=== PATIENT | male | born 1945 | race Caucasian/White ===

== ENCOUNTER → 2018-12-04 | Outpatient (CLI) | payer MEDICARE ==
--- NOTE | 2018-12-05 10:28 | US ---
EXAM DESCRIPTION: Carotid Duplex CLINICAL HISTORY: BRUIT COMPARISON: None Available. TECHNIQUE: Carotid Doppler ultrasound FINDINGS: Right Submitted images show calcified plaque at the right carotid bifurcation. The following flow velocities were obtained: Common carotid artery peak systolic flow velocity measures 94 centimeters per second. Internal carotid artery peak systolic flow velocity measures 63 - 86 centimeters per second. External carotid artery peak systolic flow velocity measures 90 centimeters per second. Flow in the right vertebral artery is antegrade. The right internal carotid to common carotid peak systolic flow velocity ratio equals 0.9 which is normal. Left Submitted images show mild calcified plaque at the left carotid bulb and proximal ICA. The following flow velocities were obtained: Common carotid artery peak systolic flow velocity measures 97 centimeters per second. Internal carotid artery peak systolic flow velocity measures 57-61 centimeters per second. External carotid artery peak systolic flow velocity measures 60 centimeters per second. Flow in the left vertebral artery is antegrade. The left internal carotid to common carotid peak systolic flow velocity ratio of 0.6 is normal. IMPRESSION: No hemodynamically significant stenosis. Electronically signed by: Efra Corona MD 12/05/2018 10:25 AM CDT
== END ==
LOC: US 16:55
PROVIDERS: ATTEND Psychiatry & Neurology Neurology
DX: R09.89 Other specified symptoms and signs involving the circulatory and respiratory systems (principal)

== ENCOUNTER 2019-08-26 17:07 | Emergency (ER) | payer MEDICARE ==
[2019-08-26] MEDS ORDERED: SODIUM CHLORIDE 0.9% 1000ML 1,000 ML IVS ONE (17:21)
[2019-08-26] MEDS ORDERED: ONDANSETRON INJ 4 MG/2 ML VIAL IV ONE (17:21)
--- NOTE | 2019-08-26 17:25 | ED.PDOC ---
History of Present Illness - General Chief Complaint: GI Problem Stated Complaint: Constipation, Dizziness Time Seen by Provider: 08/26/19 17:14 Source: patient, RN notes reviewed, Vital Signs reviewed, family Exam Limitations: no limitations - History of Present Illness Initial Comments: 74 yo male presents to ED for evaluation of constipation and dizziness. States he has been constipated for the past 2 years. His GI doctor recommended him to take Miralax and fiber supplement which has helped. States his last BM was 3-4 days ago, but has been passing gas. Has been nauseated with dry heaves, but denies vomiting. Reports diffuse, crampy abdominal pain. Also reports dizziness when he stands that has been off and on for the past week. He describes this as light headed. Denies room spinning, off balance or any fall or trauma. Denies BAILEY, vision changes, CP. Severity: moderate Improving Factors: medication Allergies/Adverse Reactions: Allergies NO KNOWN ALLERGY Allergy (Verified 08/26/19 17:20) Home Medications: Ambulatory Orders Amiodarone HCl 200 mg PO DAILY 08/26/19 Aspirin [Aspirin Adult Low Dose] 81 mg PO BEDTIME 08/26/19 Atorvastatin Calcium [Lipitor] 10 mg PO DAILY 08/26/19 Finasteride 5 mg PO BEDTIME 08/26/19 Lisinopril 20 mg PO DAILY 08/26/19 Warfarin Sodium 2 mg PO BEDTIME 08/26/19 Review of Systems - Review of Systems Constitutional: Denies: chills, fever, weakness EENTM: Denies: blurred vision, nose congestion, throat pain Respiratory: Denies: cough, orthopnea, short of breath Cardiology: Denies: chest pain, edema, syncope Gastrointestinal/Abdominal: States: abdominal pain, constipation, nausea. Denies: vomiting Genitourinary: Denies: dysuria, frequency, hematuria Musculoskeletal: Denies: back pain, muscle pain Skin: States: no symptoms reported Neurological: Denies: headache, paresthesia, weakness All other Systems: Reviewed and Negative Family Medical History - Family History Father Family History: No Known Living Status: Physical Exam - Physical Exam General Appearance: Alert, Comfortable, No apparent distress Eye Exam: bilateral normal - PERRL Ears, Nose, Throat: other - bilateral TM's have no erythema or effusion. Oropharynx has no erythema, edema or exudates. MMM Neck: non-tender, full range of motion, supple Respiratory: chest non-tender, lungs clear, normal breath sounds, no respiratory distress Cardiovascular/Chest: normal peripheral pulses, regular rate, rhythm, no edema, other - 5/6 systolic murmur Gastrointestinal/Abdominal: soft, other - Mild TTP diffusely. 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 strength 5/5. speech is fluent and coonversational Skin Exam: normal color, warm/dry Progress - Progress Progress: 08/26/19 17:28 Pt presents for worsening of his chronic constipation. Has mild abdominal tenderness and reports nausea with dry heaves at home. Will get CT to r/o obstruction. Also reports 1 week h/o feeling light headed when he stands. Will check labs and EKG and give IVF and observe in ED. 08/26/19 19:04 CT A/P and labs rreassuring. No heavy stool burden on CT. Abdomen is soft, no sign of acute abdomen. Will ccontinue Miralax at home and f/u with pcp in 1-2 days for recheck. SRP given. - Results/Orders Results/Orders: EXAM: Chest,1 View CLINICAL INDICATION: Shortness of COMPARISON: 07/22/2019 FINDINGS: A single view of the chest was obtained. Atherosclerotic calcifications are noted involving the aorta. The heart size is normal. The pulmonary vascularity is unremarkable. The lungs are clear except for minimal linear atelectasis adjacent to the left hilum. There is no consolidation, infiltrate, pleural effusion, or pneumothorax. IMPRESSION: No evidence of active pulmonary disease. EXAM: Abdomen/Pelvis w/Contrast CLINICAL INDICATION: Abdominal pain. COMPARISON: There is no previous study for comparison. TECHNIQUE: The CT scan was done using contiguous axial 5 mm postcontrast sections through the abdomen and pelvis including IV contrast. This exam was performed according to our departmental dose-optimization program, which includes automated exposure control, adjustment of the mA and/or kV according to patient size and/or use of iterative reconstruction technique. FINDINGS: The visualized lung bases contain foci of subsegmental atelectasis but are otherwise clear. Mild pectus excavatum is noted. The liver, gallbladder, kidneys, adrenal glands, spleen, and pancreas have a normal CT appearance. The aorta contains atherosclerotic calcifications without evidence of aneurysm. The prostate gland is enlarged measuring 4.6 x 4.9 cm. There are no dilated loops of small bowel. There is no free air, free fluid, or abscess. IMPRESSION: No evidence of an acute intra-abdominal process. 08/26/19 17:20 Hold Metformin x 48Hrs [id number] 08/26/19 17:21 URINALYSIS Stat 08/26/19 17:30 EKG .ONCE Laboratory Results - last 24 hr 08/26/19 08/26/19 08/26/19 17:35 17:35 17:35 WBC 6.9 RBC 4.02 L Hgb 12.6 L Hct 37.5 L MCV 93.2 MCH 31.3 H MCHC 33.6 RDW 14.0 Plt Count 189 MPV 10.2 Absolute Neuts (auto) 5.20 Absolute Lymphs (auto) 0.90 L Absolute Monos (auto) 0.60 Absolute Eos (auto) 0.10 Absolute Basos (auto) 0.10 Neutrophils % 75.7 Lymphocytes % 13.7 L Monocytes % 8.8 Eosinophils % 0.8 L Basophils % 1.0 Sodium 134 L Potassium 4.3 Chloride 102 Carbon Dioxide 22 Anion Gap 14.3 BUN 34 H Creatinine 1.64 H BUN/Creatinine Ratio 20.7 H Random Glucose 97 Serum Osmolality 275.8 Calcium 10.3 H Total Bilirubin 2.4 H* AST 24 ALT 11 Alkaline Phosphatase 51 Troponin I Serum Total Protein 6.8 Albumin 4.3 Globulin 2.5 Albumin/Globulin Ratio 1.7 Lipase 55 H 08/26/19 17:35 WBC RBC Hgb Hct MCV MCH MCHC RDW Plt Count MPV Absolute Neuts (auto) Absolute Lymphs (auto) Absolute Monos (auto) Absolute Eos (auto) Absolute Basos (auto) Neutrophils % Lymphocytes % Monocytes % Eosinophils % Basophils % Sodium Potassium Chloride Carbon Dioxide Anion Gap BUN Creatinine BUN/Creatinine Ratio Random Glucose Serum Osmolality Calcium Total Bilirubin AST ALT Alkaline Phosphatase Troponin I 0.02 Serum Total Protein Albumin Globulin Albumin/Globulin Ratio Lipase - EKG/XRAY/CT Comments: sinus bradycardia, rate 58, LVH, normal QRS interval Departure - Departure Clinical Impression: Dizziness Abdominal pain Qualifiers: Abdominal location: generalized Qualified Code(s): R10.84 - Generalized abdominal pain Time of Disposition: 19:06 Disposition: Discharge to Home or Self Care Condition: Good Departure Forms: ED Discharge - Pt. Copy, Patient Portal Self Enrollment Instructions: DI for Constipation Diet: resume usual diet Activity: increase activity as tolerated Referrals: ANI KRAUS [Primary Care Provider] - 1-2 Days Home Medications: Ambulatory Orders Amiodarone HCl 200 mg PO DAILY 08/26/19 Aspirin [Aspirin Adult Low Dose] 81 mg PO BEDTIME 08/26/19 Atorvastatin Calcium [Lipitor] 10 mg PO DAILY 08/26/19 Finasteride 5 mg PO BEDTIME 08/26/19 Lisinopril 20 mg PO DAILY 08/26/19 Warfarin Sodium 2 mg PO BEDTIME 08/26/19
--- NOTE | 2019-08-26 18:11 | RAD ---
EXAM: Chest,1 View CLINICAL INDICATION: Dizziness COMPARISON: There is no previous study for comparison. FINDINGS: A single view of the chest was obtained. The heart size is mildly enlarged. The pulmonary vascularity is unremarkable. The lungs are clear. There is no consolidation, infiltrate, pleural effusion, or pneumothorax. IMPRESSION: No evidence of active pulmonary disease. Mild cardiomegaly. 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
--- NOTE | 2019-08-26 18:44 | CT ---
EXAM: Abdomen/Pelvis w/Contrast CLINICAL INDICATION: Abdominal pain. COMPARISON: There is no previous study for comparison. TECHNIQUE: The CT scan was done using contiguous axial 5 mm postcontrast sections through the abdomen and pelvis including IV contrast. This exam was performed according to our departmental dose-optimization program, which includes automated exposure control, adjustment of the mA and/or kV according to patient size and/or use of iterative reconstruction technique. FINDINGS: The visualized lung bases contain foci of subsegmental atelectasis but are otherwise clear. Mild pectus excavatum is noted. The liver, gallbladder, kidneys, adrenal glands, spleen, and pancreas have a normal CT appearance. The aorta contains atherosclerotic calcifications without evidence of aneurysm. The prostate gland is enlarged measuring 4.6 x 4.9 cm. There are no dilated loops of small bowel. There is no free air, free fluid, or abscess. IMPRESSION: No evidence of an acute intra-abdominal process. 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
[2019-08-26 19:22] VITALS: BP 133/74; TEMP 97.7; O2SAT 97
== END 2019-08-26 19:22 | disposition home or self-care (01) ==
LOC: ER 17:07
DX: R10.84 Generalized abdominal pain (principal); R42 Dizziness and giddiness; R11.0 Nausea; R00.1 Bradycardia, unspecified; I51.7 Cardiomegaly; K59.00 Constipation, unspecified; Z79.899 Other long term (current) drug therapy; Z79.82 Long term (current) use of aspirin; Z79.01 Long term (current) use of anticoagulants
CPT/HCPCS: 71045; 74177; 80053; 83690; 84484; 85025; 93005; J2405; J7030

== ENCOUNTER 2019-12-20 15:09 | Emergency (ER) | payer MEDICARE ==
[2019-12-20 15:28] VITALS: TEMP 98.3
[2019-12-20] MEDS ORDERED: SODIUM CHLORIDE 0.9% (FLUSH) 10 ML SYG IV PRN (15:41)
--- NOTE | 2019-12-20 16:11 | RAD ---
EXAM DESCRIPTION: Chest,1 View CLINICAL HISTORY: 74 years Male, dizziness COMPARISON: August 26, 2019 TECHNIQUE: AP portable chest. FINDINGS: Fair expansion of the lungs is evident without consolidation, layering effusion, or large mass. Moderate cardiomegaly with tortuous aortic arch and descending aorta is present with normal vascularity. The hilar and mediastinal structures are normal. No gross bony, hilar, or mediastinal abnormalities are noted. IMPRESSION: Cardiomegaly without congestive failure with clear lungs. Electronically signed by: Gerry Wright MD 12/20/2019 4:09 PM CDT
--- NOTE | 2019-12-20 16:25 | ED.PDOC ---
History of Present Illness - General Chief Complaint: General Stated Complaint: N/V, Dizziness Time Seen by Provider: 12/20/19 15:41 Source: patient, RN notes reviewed, Vital Signs reviewed, family - Exam Limitations: no limitations - History of Present Illness Initial Comments: Patient is a 74-year-old white male who presents with complaints of nausea, vomiting and generalized malaise and fatigue. Additionally he is complaining of dizziness. Patient symptoms of worsened over the last day and a half. Patient denies any chest pain. Patient denies any headache. Patient denies palpitations or syncope. Timing/Duration: other - 2 days Severity: moderate Improving Factors: nothing Worsening Factors: other - Standing up or exerting himself. Associated Symptoms: malaise, nausea/vomiting, weakness Allergies/Adverse Reactions: Allergies NO KNOWN ALLERGY Allergy (Verified 12/20/19 16:03) Home Medications: Ambulatory Orders Amiodarone HCl 200 mg PO DAILY 08/26/19 Aspirin [Aspirin Adult Low Dose] 81 mg PO BEDTIME 08/26/19 Atorvastatin Calcium [Lipitor] 10 mg PO DAILY 08/26/19 Finasteride 5 mg PO BEDTIME 08/26/19 Lisinopril 20 mg PO DAILY 08/26/19 Warfarin Sodium 2 mg PO BEDTIME 08/26/19 Review of Systems - Review of Systems Constitutional: States: see HPI, weakness EENTM: States: no symptoms reported, see HPI Respiratory: States: no symptoms reported. Denies: cough, short of breath, wheezing Cardiology: States: no symptoms reported. Denies: chest pain, palpitations, syncope Gastrointestinal/Abdominal: States: see HPI, diarrhea, nausea, vomiting. Denies: abdominal pain Genitourinary: States: no symptoms reported. Denies: dysuria, frequency Musculoskeletal: States: no symptoms reported. Denies: back pain, joint pain, neck pain Skin: States: no symptoms reported. Denies: change in color, rash Neurological: States: weakness. Denies: headache, numbness, paresthesia, tingling, tremors Endocrine: States: no symptoms reported Hematologic/Lymphatic: States: no symptoms reported All other Systems: Reviewed and Negative, No Change from Baseline Past Medical History (General) - Patient Medical History Hx Stroke: No Hx Cardiac Disorders: Yes - Hypercholesterolemia; arrhythmia Hx Congestive Heart Failure: No Hx Hypertension: Yes Hx Diabetes: No Hx MRSA: No - Vaccination History Hx Influenza Vaccination: Yes - 2019 Hx Pneumococcal Vaccination: No - Social History Hx Tobacco Use: No Hx Alcohol Use: No - Activities of Daily Living Hospice Agency (if applicable):: None - Female History Patient is a Female of Child Bearing Age (10 -59 yrs old): No Patient : No - Triage Comment ED Triage Comment: EMS brought pt in via stretcher. complaining of nausea vomiting and dizziness for 1 weeks. Family Medical History - Family History Father Family History: No Known Living Status: Physical Exam - Physical Exam General Appearance: Alert, Anxious, Emaciated, Obvious distress, Well Hydrated Eye Exam: bilateral normal Ears, Nose, Throat: hearing grossly normal, normal ENT inspection, normal pharynx Neck: non-tender, full range of motion, supple Respiratory: chest non-tender, lungs clear, normal breath sounds, no respiratory distress, no accessory muscle use Cardiovascular/Chest: normal peripheral pulses, no edema, no gallop, no JVD, no murmur, bradycardia Peripheral Pulses: radial,right: 2+, radial,left: 2+ Gastrointestinal/Abdominal: normal bowel sounds, non tender, soft Back Exam: normal inspection, no CVA tenderness, no vertebral tenderness Extremity: normal range of motion, non-tender, normal inspection 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 12/20/19 17:17 Patient's labs are relatively unchanged except for an elevated BUN. It appears the patient is dehydrated as he has a BUN to creatinine ratio 27:1. Patient's I NR is markedly elevated and is greater than 10. Patient has no active bleeding at this time. Will discharge patient home with instructions not to take his Coumadin for at least the next 2 days. Will have patient follow-up with PCP on Tuesday or Tuesday. I discussed this plan of care with the patient and he voices understanding and agreement. Solis Yepez M.D. #[id number] - Results/Orders Results/Orders: 12/20/19 15:41 Sodium Chloride 0.9% (Flush) [Saline Flush Syringe] 3 ml IV PRN PRN 12/20/19 15:42 IV Care:Saline Lock per Protoc QSHIFT Telemetry ONCE Oxygen Stat 12/20/19 15:45 EKG STAT 12/21/19 09:00 Pulse Ox Daily Laboratory Results - last 24 hr 12/20/19 14:38 WBC 8.5 RBC 4.06 L Hgb 12.9 L Hct 37.4 L MCV 92.1 MCH 31.9 H MCHC 34.6 RDW 14.4 Plt Count 232 MPV 10.6 H Absolute Neuts (auto) 7.30 H Absolute Lymphs (auto) 0.60 L Absolute Monos (auto) 0.60 Absolute Eos (auto) 0.00 Absolute Basos (auto) 0.00 Neutrophils % 85.4 H Lymphocytes % 7.5 L Monocytes % 6.7 Eosinophils % 0.2 L Basophils % 0.2 PT > 93.6 H* INR > 10.00 H* PTT (SP) 46.5 H* Sodium 133 L Potassium 3.8 Chloride 101 Carbon Dioxide 20 L Anion Gap 15.8 BUN 44 H Creatinine 1.63 H BUN/Creatinine Ratio 27.0 H Random Glucose 101 Serum Osmolality 277.7 Calcium 10.5 H Magnesium 2.2 Creatine Kinase 62 CK-MB (CK-2) 1.2 CK-MB (CK-2) % Not Reportable Troponin I < 0.02 EXAM DESCRIPTION: Chest,1 View CLINICAL HISTORY: 74 years Male, dizziness COMPARISON: August 26, 2019 TECHNIQUE: AP portable chest. FINDINGS: Fair expansion of the lungs is evident without consolidation, layering effusion, or large mass. Moderate cardiomegaly with tortuous aortic arch and descending aorta is present with normal vascularity. The hilar and mediastinal structures are normal. No gross bony, hilar, or mediastinal abnormalities are noted. IMPRESSION: Cardiomegaly without congestive failure with clear lungs. Electronically signed by: Gerry Wright MD 12/20/2019 4:09 PM EKG performed 20 December 2019 at 1515 hrs.: Sinus bradycardia with sinus arrhythmia at 58 bpm, right bundle branch block, left anterior fascicular block, septal infarct age indeterminate, abnormal EKG. No old EKG for comparison. Departure - Departure Clinical Impression: Dehydration, Renal insufficiency, mild, Elevated INR Time of Disposition: 17:36 Disposition: Discharge to Home or Self Care Condition: Fair Departure Forms: ED Discharge - Pt. Copy, Patient Portal Self Enrollment Instructions: What to Do When Your INR Is Too High Diet: resume usual diet Activity: increase activity as tolerated Referrals: ANI KRAUS [Primary Care Provider] - 1-5 Days Home Medications: Ambulatory Orders Amiodarone HCl 200 mg PO DAILY 08/26/19 Aspirin [Aspirin Adult Low Dose] 81 mg PO BEDTIME 08/26/19 Atorvastatin Calcium [Lipitor] 10 mg PO DAILY 08/26/19 Finasteride 5 mg PO BEDTIME 08/26/19 Lisinopril 20 mg PO DAILY 08/26/19 Warfarin Sodium 2 mg PO BEDTIME 08/26/19 Comments: Do not take your Coumadin on night, Tuesday night or Tuesday night. Return here on Tuesday for a repeat INR level. The on-call ED physician will review this and call you with results and when to resume your Coumadin.
[2019-12-20 17:18] VITALS: O2SAT 97
[2019-12-20 18:00] VITALS: BP 123/64
== END 2019-12-20 17:50 | disposition home or self-care (01) ==
LOC: ER 15:09
DX: E86.0 Dehydration (principal); R11.2 Nausea with vomiting, unspecified; N28.9 Disorder of kidney and ureter, unspecified; R53.1 Weakness; R00.1 Bradycardia, unspecified; I45.2 Bifascicular block; I10 Essential (primary) hypertension

== ENCOUNTER 2019-12-23 13:01 | Inpatient (IN) | payer MEDICARE ==
[2019-12-23] MEDS ORDERED: SODIUM CHLORIDE 0.9% 1000ML 1,000 ML IVS ONE (13:14)
--- NOTE | 2019-12-23 13:14 | ED.PDOC ---
History of Present Illness - General Chief Complaint: General Stated Complaint: Generalized weakness Time Seen by Provider: 12/23/19 13:05 Source: patient, RN notes reviewed, Vital Signs reviewed, EMS notes reviewed, EMS, old records - History of Present Illness Initial Comments: This is a 74-year-old male with history of mitral valve prolapse, hypertension, on daily warfarin, presenting to the emergency department for generalized weakness and malaise. He was seen in the emergency department 3 days ago for nausea/vomiting and generalized weakness. His INR at that time was noted to be greater than 10. His creatinine was also elevated at 1.6. He states he has not stopped taking the warfarin. He denies any headache, chest pain, shortness of breath, fevers. Nausea/vomiting have resolved. No diarrhea. No blood in stool, no blood in urine. No sick contacts. No recent travel. He denies any recent falls. Pt takes Amiodarone and warfarin, presumably for Afib, but the pt is unsure. Per EMS crew that transported him, they were the crew that transported him to the ER 3 days ago. They state his symptoms are much more progressed today than 3 days ago. He was able to walk to the ambulance at that time, but they had to assist him into the ambulance today and he was unable to walk unassisted. They state his clothes of the same clothes he was wearing 3 days ago. His house is in a state of severe disarray. 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 Denies: chills, fever EENTM: Denies: eye pain, ear pain, nose pain, nose congestion Respiratory: Denies: cough, orthopnea, short of breath Cardiology: Denies: chest pain, edema, palpitations Gastrointestinal/Abdominal: Denies: abdominal pain, diarrhea, nausea, vomiting Genitourinary: Denies: dysuria, hematuria Musculoskeletal: Denies: back pain, joint pain, joint swelling, muscle stiffness Skin: Denies: change in color, lesions, rash Neurological: Denies: headache, numbness, tingling, tremors Endocrine: States: unexplained weight loss - Approximately 20 to 25 pounds. Denies: increased hunger, increased thirst, increased urine Hematologic/Lymphatic: States: easy bleeding - On warfarin Past Medical History (General) - Patient Medical History Hx Stroke: No Hx Cardiac Disorders: Yes - Hypercholesterolemia; arrhythmia Hx Congestive Heart Failure: No Hx Hypertension: Yes Hx Diabetes: No Hx MRSA: No - Vaccination History Hx Influenza Vaccination: Yes - 2019 Hx Pneumococcal Vaccination: No - Social History Hx Tobacco Use: No Hx Alcohol Use: No - Female History Patient : No Family Medical History - Family History Father Family History: No Known Living Status: Physical Exam - Physical Exam General Appearance: Alert, Comfortable, Emaciated, Frail Eye Exam: bilateral normal Ears, Nose, Throat: hearing grossly normal, normal ENT inspection Neck: non-tender, full range of motion, supple Respiratory: chest non-tender, lungs clear, normal breath sounds, no respiratory distress Cardiovascular/Chest: normal peripheral pulses, regular rate, rhythm, systolic murmur Peripheral Pulses: radial,right: 2+, radial,left: 2+, dorsalis pedis,right: 2+, dorsalis pedis,left: 2+, posterior tibialis,right: 2+, posterior tibialis,left: 2+ Gastrointestinal/Abdominal: non tender, soft Back Exam: normal inspection, no CVA tenderness, no vertebral tenderness Extremity: normal range of motion, non-tender, normal inspection, no pedal edema, no calf tenderness 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 now in the room with the patient. Discussed labs to date. Family states patient had a fall with a minor head contusion yesterday. No LOC. Report he has been unable to stand up or get out of bed for the past 3 days. Unable to shower, very poor appetite. 12/23/19 17:10 Recheck. Discussed lab/CT findings with patient and family. Discussed plan for admission. All questions answered, patient family agreeable to hospitalization. 12/23/19 17:45 Discussed with Erich Omer NP, reviewed labs/CT findings. He reviewed the case with hospitalist. Will admit. - Results/Orders Results/Orders: EKG reviewed personally by me at 1306. Sinus bradycardia, rate of 57, right ax is, LAFB, nonspecific ST and T wave changes EXAM: CT Head Without Intravenous Contrast CLINICAL HISTORY: Generalized weakness, unable to walk TECHNIQUE: Axial computed tomography images of the head/brain without intravenous contrast. Sagittal and coronal reformatted images were created and reviewed. This CT exam was performed using one or more of the following dose reduction techniques: automated exposure control, adjustment of the mA and/or kV according to patient size, and/or use of iterative reconstruction technique. COMPARISON: No relevant prior studies available. FINDINGS: Brain: There is age related cortical atrophy and periventricular white matter hypodensity most consistent with chronic small ischemic change. No acute infarct, hemorrhage or mass. Ventricles: Unremarkable. No ventriculomegaly. Bones/joints: Unremarkable. No acute fracture. Soft tissues: Soft tissue thickening/contusion noted along the right maxilla. Sinuses: Mild bilateral chronic ethmoid sinus thickening noted. Mastoid air cells: Unremarkable as visualized. No mastoid effusion. IMPRESSION: 1. Soft tissue thickening/contusion noted along the right maxilla. Correlate clinically. 2. No acute change in the brain. Electronically signed by: Kirsten Méndez MD 12/23/2019 3:33 PM Chest x-ray reviewed by me at 2:39 PM. Cardiomegaly, no acute process 12/23/19 13:14 Sodium Chloride 0.9% (Flush) [Saline Flush Syringe] 10 ml IV PRN PRN EKG Stat Pulse Ox Stat 12/23/19 13:20 BLOOD CULTURE Stat 12/23/19 15:34 Hold Metformin x 48Hrs [id number] 12/23/19 17:39 ED Intent to Admit Routine Laboratory Results - last 24 hr 12/23/19 12/23/19 12/23/19 13:00 13:20 13:20 WBC 12.7 H RBC 3.84 L Hgb 11.8 L Hct 35.4 L MCV 92.3 MCH 30.7 MCHC 33.3 RDW 15.0 H Plt Count 211 MPV 10.1 Absolute Neuts (auto) 11.50 H Absolute Lymphs (auto) 0.40 L Absolute Monos (auto) 0.70 Absolute Eos (auto) 0.00 Absolute Basos (auto) 0.00 Neutrophils % 90.6 H Lymphocytes % 3.2 L Monocytes % 5.7 Eosinophils % 0.2 L Basophils % 0.3 PT INR PTT (SP) Sodium 136 Potassium 5.2 H D Chloride 103 Carbon Dioxide 18 L Anion Gap 20.2 H BUN 58 H D Creatinine 1.73 H BUN/Creatinine Ratio 33.5 H Random Glucose 90 Serum Osmolality 287.7 Lactic Acid 1.9 Calcium 10.5 H Total Bilirubin 5.0 H* AST 60 H ALT 36 Alkaline Phosphatase 78 Creatine Kinase 544 H* D CK-MB (CK-2) 4.3 CK-MB (CK-2) % 0.79 Troponin I 0.02 B-Natriuretic Peptide Serum Total Protein 6.7 Albumin 4.1 Globulin 2.6 Albumin/Globulin Ratio 1.6 TSH 1.81 Urine Color Urine Appearance Urine pH Ur Specific [place] Urine Protein Urine Glucose (UA) Urine Ketones Urine Blood Urine Nitrite Urine Bilirubin Urine Urobilinogen Ur Leukocyte Esterase Urine RBC Urine WBC Ur Epithelial Cells Urine Bacteria 12/23/19 12/23/19 12/23/19 13:20 13:20 15:53 WBC RBC Hgb Hct MCV MCH MCHC RDW Plt Count MPV Absolute Neuts (auto) Absolute Lymphs (auto) Absolute Monos (auto) Absolute Eos (auto) Absolute Basos (auto) Neutrophils % Lymphocytes % Monocytes % Eosinophils % Basophils % PT > 93.6 H* INR Not Reportable PTT (SP) 63.5 H* Sodium Potassium Chloride Carbon Dioxide Anion Gap BUN Creatinine BUN/Creatinine Ratio Random Glucose Serum Osmolality Lactic Acid 2.4 H* Calcium Total Bilirubin AST ALT Alkaline Phosphatase Creatine Kinase CK-MB (CK-2) CK-MB (CK-2) % Troponin I B-Natriuretic Peptide Serum Total Protein Albumin Globulin Albumin/Globulin Ratio TSH Urine Color Brown Urine Appearance Sl cloudy Urine pH 5.0 Ur Specific [place] >= 1.030 Urine Protein Trace Urine Glucose (UA) Negative Urine Ketones 15 H Urine Blood Trace-lysed H Urine Nitrite Negative Urine Bilirubin Moderate Urine Urobilinogen 1.0 Ur Leukocyte Esterase Negative Urine RBC 0-1 Urine WBC 0 Ur Epithelial Cells 1-3 Urine Bacteria 0 12/23/19 16:29 WBC RBC Hgb Hct MCV MCH MCHC RDW Plt Count MPV Absolute Neuts (auto) Absolute Lymphs (auto) Absolute Monos (auto) Absolute Eos (auto) Absolute Basos (auto) Neutrophils % Lymphocytes % Monocytes % Eosinophils % Basophils % PT INR PTT (SP) Sodium Potassium Chloride Carbon Dioxide Anion Gap BUN Creatinine BUN/Creatinine Ratio Random Glucose Serum Osmolality Lactic Acid Calcium Total Bilirubin AST ALT Alkaline Phosphatase Creatine Kinase CK-MB (CK-2) CK-MB (CK-2) % Troponin I B-Natriuretic Peptide 518.0 H* Serum Total Protein Albumin Globulin Albumin/Globulin Ratio TSH Urine Color Urine Appearance Urine pH Ur Specific [place] Urine Protein Urine Glucose (UA) Urine Ketones Urine Blood Urine Nitrite Urine Bilirubin Urine Urobilinogen Ur Leukocyte Esterase Urine RBC Urine WBC Ur Epithelial Cells Urine Bacteria Departure - Departure Clinical Impression: Generalized weakness, Dehydration, Physical deconditioning, Total bilirubin, elevated, Supratherapeutic INR, History of atrial fibrillation, Renal insufficiency, mild, Weight loss, abnormal Fall in home Qualifiers: Encounter type: initial encounter Qualified Code(s): W19.XXXA - Unspecified fall, initial encounter; Y92.009 - Unspecified place in unspecified non- institutional (private) residence as the place of occurrence of the external cause Closed head injury without loss of consciousness Qualifiers: Encounter type: initial encounter Qualified Code(s): S09.90XA - Unspecified injury of head, initial encounter Disposition: Admit Patient Condition: Fair Departure Forms: ED Discharge - Pt. Copy, Patient Portal Self Enrollment Referrals: ANI KRAUS [Primary Care Provider] - 1-2 Weeks Home Medications: Ambulatory Orders Amiodarone HCl 200 mg PO DAILY 08/26/19 Aspirin [Aspirin Adult Low Dose] 81 mg PO BEDTIME 08/26/19 Atorvastatin Calcium [Lipitor] 10 mg PO DAILY 08/26/19 Finasteride 5 mg PO BEDTIME 08/26/19 Lisinopril 20 mg PO DAILY 08/26/19 Warfarin Sodium 2 mg PO BEDTIME 08/26/19
[2019-12-23] MEDS ORDERED: MEROPENEM 1 GM in SODIUM CHL 0.9% 50ML MIN-BAG+ 50 ML IVPB ONE (13:17)
[2019-12-23] MEDS: SODIUM CHLORIDE 0.9% (FLUSH) 10 ML SYG IV PRN (13:40)
[2019-12-23] MEDS ORDERED: SODIUM CHL 0.9% 50ML MIN-BAG+ 50 ML IVPB ONE (13:41)
[2019-12-23] MEDS ORDERED: MEROPENEM 1 GM VIAL IVPB ONE (13:42)
--- NOTE | 2019-12-23 15:09 | RAD ---
: 1945. Technique: Portable AP chest x-ray. Comparison: December 20, 2019. Clinical history: Generalized weakness. Heart size: Heart size mildly enlarged unchanged. Tortuous aorta. No vascular congestion. Lungs: No acute consolidation. Question nodule overlying the peripheral right upper lobe may be an artifact. Pleura: No pleural effusion. No pneumothorax. Mediastinum and florence: Unremarkable. Skeletal: Degenerative changes of the shoulders. Support tubings: None. Impression: 1. Cardiomegaly. Stable follow-up. Electronically signed by: Rojas Lomeli MD 12/23/2019 3:08 PM CDT
--- NOTE | 2019-12-23 15:35 | CT ---
EXAM: CT Head Without Intravenous Contrast CLINICAL HISTORY: Generalized weakness, unable to walk TECHNIQUE: Axial computed tomography images of the head/brain without intravenous contrast. Sagittal and coronal reformatted images were created and reviewed. This CT exam was performed using one or more of the following dose reduction techniques: automated exposure control, adjustment of the mA and/or kV according to patient size, and/or use of iterative reconstruction technique. COMPARISON: No relevant prior studies available. FINDINGS: Brain: There is age related cortical atrophy and periventricular white matter hypodensity most consistent with chronic small ischemic change. No acute infarct, hemorrhage or mass. Ventricles: Unremarkable. No ventriculomegaly. Bones/joints: Unremarkable. No acute fracture. Soft tissues: Soft tissue thickening/contusion noted along the right maxilla. Sinuses: Mild bilateral chronic ethmoid sinus thickening noted. Mastoid air cells: Unremarkable as visualized. No mastoid effusion. IMPRESSION: 1. Soft tissue thickening/contusion noted along the right maxilla. Correlate clinically. 2. No acute change in the brain. Electronically signed by: Kirsten Méndez MD 12/23/2019 3:33 PM CDT
[2019-12-23] MEDS ORDERED: SODIUM CHLORIDE 0.9% 500ML 500 ML IVS ONE (16:28)
--- NOTE | 2019-12-23 17:00 | CT ---
EXAM DESCRIPTION: Abdomen/Pelvis w/Contrast CLINICAL HISTORY: 74 years Male generalized weakness, elevated LFTs COMPARISON: 08/26/2019 TECHNIQUE: Contiguous axial images obtained through the abdomen and pelvis following IV contrast. Reformatted images obtained. This exam was performed according to our department optimization program which includes automated exposure control, adjustment of the mA and/or kv according to patient size and/or use of iterative reconstruction technique. FINDINGS: The liver appears unremarkable. Pancreas and spleen appear unremarkable. No definite intra-articular extrahepatic player ductal dilatation is observed. No adrenal masses. The kidneys appear unremarkable. No hydronephrosis. The gallbladder is present. Some increased density may reflect layering sludge or stones versus vicarious excretion of contrast. No aneurysmal dilatation of the aorta. No bowel obstruction. The appendix is nonvisualized. No significant free fluid noted. Moderate amount of fecal material throughout the colon suggesting constipation. Examination is limited by lack of mesenteric fat and motion artifact. Moderate compression at L1 which appears chronic with some retropulsion of fracture fragments resulting in mild narrowing of the central canal. IMPRESSION: Moderate fecal material in the colon suggesting constipation No biliary ductal dilatation or hepatic abnormality noted Question sludge or stones in the gallbladder versus vicarious excretion of contrast Compression at L1 Electronically signed by: Valerie Dickson MD 12/23/2019 4:59 PM CDT
[2019-12-23] MEDS ORDERED: PHYTONADIONE INJ 5 MG in SODIUM CHLORIDE 0.9% 50ML 50 ML IVPB ONE ×2 (17:41→18:32)
--- NOTE | 2019-12-23 18:05 | HP ---
SUPERVISING PHYSICIAN: Henry Mitchell MD CHIEF COMPLAINT: Severe weakness with multiple falls. HISTORY OF PRESENT ILLNESS: Mr. Stein is a 74-year-old male patient who has a history of mitral valve prolapse, hypertension, and chronic atrial fibrillation. Mr. Stein was brought to the Emergency Room via 911 with generalized weakness and malaise complaints. He was seen previously 3 days prior for some nausea, vomiting and generalized weakness. At that visit, it was noted his INR was elevated to greater than 10 and creatinine elevated at 1.6. He does endorse that he has stopped taking his warfarin despite the elevation. Looking at previous records, he was instructed to hold his Coumadin for 3 days and then return to the ER for further evaluation. He denied any headache, shortness of breath, chest pain, fever, diarrhea, no blood in the stool or urine. He has not traveled recently and has not had any ill contact exposure. Today, his laboratory studies showed a mild leukocytosis at 12,700 with a left shift, hemoglobin 11.8, hematocrit 35.4. Coagulation studies again showed an INR that was greater than 10 with PT 93.6, PT-T 63.5. Chemistries showed multiple electrolyte derangements with potassium 5.2, carbon dioxide 18, anion gap elevated at 20, BUN elevated at 58, creatinine 1.73 from 1.6 three days previously. Lactic acid was elevated at 2.4, total bilirubin 5.0, calcium 10.5, AST only slightly elevated at 60, ALT and alkaline phosphatase were normal. CK was elevated at 544. Troponin 0.02. BNP elevated at 518. TSH normal at 1.81. Urine in the ER showed 15 ketones, trace lysed blood, otherwise within normal limits. He had a chest x-ray that showed cardiomegaly, but stable. CT of the abdomen and pelvis without contrast per radiologic interpretation showed moderate fecal material in the colon suggesting constipation. No biliary duct dilation or hepatic abnormality was noted. There was question of sludge or stones in the gallbladder versus vicarious excretion of contrast. Compression fracture at L1 is noted which appears to be chronic with some retropulsion of fracture fragments resulting in some mild narrowing of the central canal. Vital signs initially on presentation showed he was mildly hypothermic with a temperature of 95.6, pulse 57, blood pressure 107/65, respiratory rate 18, saturations 100% on room air. On exam, the patient is severely dehydrated in appearance, also emaciated. The patient does endorse he has lost a large amount of weight. He is not sure of the actual amount, but it has been in a short period of time. He does live with is who has been attempting to take care of him, however, his weakness has gotten worse over the last 3 days where his is unable to help him off the floor after a fall or even to the restroom. He notes he has been drinking about a glass of water a day and only urinating about once a day. The patient is going to be admitted now for severe dehydration, severe malnutrition with metabolic acidosis with no clear etiology of any infectious source. He was admitted in stable condition. PAST MEDICAL HISTORY: 1. Chronic atrial fibrillation on Coumadin and amiodarone. 2. Mitral valve prolapse. 3. Hypertension. PAST SURGICAL HISTORY: 1. Hernia repair. 2. Appendectomy. HOME MEDICATIONS: 1. Warfarin 2 mg at bedtime. 2. Lisinopril 20 mg daily. 3. Finasteride 5 mg at bedtime. 4. Lipitor 10 mg at bedtime. 5. Aspirin 81 mg at bedtime. 6. Amiodarone 200 mg daily. ALLERGIES: NO KNOWN DRUG ALLERGIES. FAMILY HISTORY: Unknown. 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 He lives in [place], [place]. He is . They have no children. He has no tobacco or alcohol usage ever. They have no living relatives that are able to take care of either one of them. He reports that since the COVID pandemic started, they have been pretty much isolated at home, but apparently they have a nurse, he is not sure if it is home health or what, that is supposed to be checking his Coumadin levels, but he is not sure when it was done last. PHYSICIANS: [employer] Technician: Dr. Randhawa. Primary care physician: Dr. Saji Martínez. REVIEW OF SYSTEMS: CONSTITUTIONAL: As noted in history of present illness, generalized malaise. Negative for any fevers. He does have severe weakness and unexplained weight loss, amount not known, over a short period of time. HEENT: Negative for headaches, sore throats, earaches, nasal congestion, vision changes. RESPIRATORY: Negative for coughing, orthopnea, shortness of breath, wheezing. CARDIOVASCULAR: Negative for chest pain, palpitations, peripheral edema, tachycardia or syncopal episodes. GASTROINTESTINAL: Negative for nausea, vomiting, diarrhea, or abdominal pain. He does note he has had some issues with constipation. Last bowel movement was approximately 3 days previously. GENITOURINARY: Negative for dysuria, hematuria, polyuria. MUSCULOSKELETAL: Negative for joint pain, swelling or other arthralgias. SKIN: Negative for lesions, rashes, moles or unexplained changes. NEUROLOGIC: Negative for headaches, numbness, tingling, tremors, ataxia, seizures or other focal deficits. ENDOCRINE: Positive for unexplained weight loss. He estimated approximately 20 to 25 pounds within the last several months. He denies any increased hunger or thirst or urination. HEMATOLOGIC: Positive for easy bruising on Coumadin. No unexplained bleeding or transfusion reactions. PHYSICAL EXAMINATION: VITAL SIGNS: Temperature on admission was 95.6, pulse 57, blood pressure 107/65, respirations 18, saturation 100% on room air. GENERAL: The patient appears to be resting comfortably. He is very unkept, disheveled, emaciated in appearance, obviously dehydrated, very frail and extremely thin for his age. HEENT: Tympanic membranes clear bilaterally. Oropharynx is pink with severe dry mucous membranes. No lesions. There is notable soft tissue swelling on the right cheek area with no bruising. It is nontender to palpation. NECK: Supple, nontender with full range of motion. No jugular venous distention noted. RESPIRATORY: Lung sounds are clear to auscultation bilaterally without any rhonchi, wheezes or rales. CARDIOVASCULAR: Regular rate and rhythm without gallops, or rubs. There is a notable systolic murmur. ABDOMEN: Thin, nontender. No tenderness on palpation. Bowel sounds hypoactive. No masses, pulsations. RECTAL: Deferred. BACK: No CVA tenderness or vertebral tenderness. EXTREMITIES: Notable muscle wasting to upper and lower extremities. There is no cyanosis, clubbing or edema. NEUROLOGIC: Cranial nerves II-XII are grossly intact. Facial features are symmetrical. Extraocular movements are within normal limits. There is no nystagmus noted. SKIN: Warm, pink and dry. LABORATORY: White count showed a leukocytosis of 12,700 with hemoglobin 11.8, hematocrit 35.4. RBC indices show a normocytic/normochromic presentation with platelet count 211,000. Differential shows a left shift. Coagulation studies showed greater than 93.6 PT with PTT 60.5 and INR not reportable, but greater than 10 based on current lab results. Initial chemistries showed sodium 136, potassium 5.2, carbon dioxide 18, anion gap elevated at 20, BUN 58, creatinine 1.73, glucose 90, lactic acid 2.4, calcium 10.5, total bilirubin 5.0, AST 60, CK 544. Liver functions were otherwise within normal limits. Initial albumin was 4.1 with TSH 1.81, troponin 0.02. BNP elevated at 518. Urinalysis showed a brown, cloudy urine with specific gravity greater than 1.03. Ketones 15, trace lysed blood. Otherwise within normal limits. Microscopic was without any significant findings. MICROBIOLOGY: Blood cultures are pending. RADIOLOGY: CT of the head without contrast per radiologic interpretation showed soft tissue thickening/contusion along the right maxilla and no acute changes in the brain. Abdomen and pelvis CT without contrast per radiologic interpretation showed moderate fecal material in the colon suggesting constipation. No biliary duct dilation or hepatic abnormalities noted. There is question of sludge or stone in the gallbladder versus vicarious excretion of contrast. There was note of a chronic compression fracture at L1. ASSESSMENT: 1. Severe dehydration. 2. Supratherapeutic INR. Etiology likely severe dehydration with no acute bleeds noted at time of admission with the patient given IV 5 mg vitamin K in the ER. 3. Moderate electrolyte imbalance with a hyperkalemia with elevated anion gap indicated metabolic acidosis secondary to lactic acidosis. 4. Leukocytosis with questionable sepsis with a lactic acidosis and metabolic acidosis with no true signs of infectious process, likely due to stress response and dehydration, but we will initiate empiric therapy until we can further rule out infectious process. 5. Hyperbilirubinemia with no significant history of hepatic abnormalities, probably due to severe dehydration and poor nutrition. 6. Contusion to the right maxilla secondary to same level fall without any acute signs of bleeding and CT of the head without any acute findings. 7. Chronic compression fracture of L1. 8. Severe nutritional deficit as noted with a BMI of 15.8. 9. Severe deconditioning contributed to by all the above. 10. Acute real insufficiency, likely prerenal azotemia secondary to severe dehydration. PLAN: Mr. Stein is going to be admitted for further treatment and evaluation. He was given fluid resuscitation in the ER, 30 mL per kg. We will repeat a lactic acid. We will plan to start him in D5 half normal saline at 125 an hour and monitor his I&Os closely. I will hold off on a Sepulveda catheter at this point unless he is having obvious urinary retention give that he does have a supratherapeutic INR without any complications from a Sepulveda placement. He was given 5 mg IV vitamin K. I will repeat a PT/INR in 6 to 8 hours to ensure this is returning to safer levels. We will repeat labs in the morning as well as will include LDH on tonight's labs. In regards to the leukocytosis, he was treated in the ER with empiric antibiotic coverage with meropenem 1 gram. We will hold off until we can repeat labs in the morning. At this point, he is not really showing any true signs of sepsis other than the mild lactic acidosis which I think is attributable to his dehydration. Again, we will re-start antibiotics based on clinical assessment tomorrow as needed. Until then, we will hold off on further empiric coverage. He probably needs to have a CT of the chest with contrast, but we will wait until his creatinine is at least within safer limits to complete a scan to rule out any underlying metastatic process given his severe weight loss. He will need a social consult, which has been ordered, because he does live with his , but I am not sure she is able to do much at this point with him and he has endorsed he knows he is probably going to have to go to a detention or nursing facility for further treatment and continued physical therapy to ensure he is safe once discharged home. We will order a physical therapy consultation in the morning. We will repeat his labs in the morning after he is further rehydrated. We will include a liver function at that tome and hopefully get a better picture of his true abnormal labs. I would anticipate he is probably going to be much more anemic that he presently presents due to the hemoconcentration. We will hold off on Coumadin again until his INR is therapeutic and resume as appropriate to care. We will review his medications as resume those as appropriate to care. I have also ordered a dietary consult and we need to see about getting him some increased caloric intake once he is able to take nutrition without any problems. He feels like he is probably a little constipated and did actually show a little constipation on the CT. Therefore, we probably need to start him on some Milk of Magnesia or at least start an enema to see if we can get him moving without any causing any complications. I would anticipate his length of stay is going to be at least 2 to 3 days. Until the patient can transition to outpatient management, we will continue to monitor and treat as needed. #[id number] MTDD
[2019-12-23] MEDS ORDERED: PHYTONADIONE INJ 10 MG/ML AMP ONE (18:28)
[2019-12-23] MEDS ORDERED: SODIUM CHLORIDE 0.9% 50ML 50 ML ONE (18:28)
[2019-12-23] MEDS ORDERED: ENOXAPARIN SODIUM 40 MG/0.4 ML SYG SUBCU ONE (19:00)
[2019-12-23] MEDS ORDERED: PANTOPRAZOLE SODIUM TAB 40 MG PO ONE (19:00)
[2019-12-23] MEDS ORDERED: LINEZOLID IVPB ONE (19:00)
[2019-12-23] MEDS ORDERED: PIPERACILLIN/TAZOBACTAM 2.25 GM VIAL IVPB ONE (19:01)
[2019-12-23] MEDS ORDERED: SODIUM CHLORIDE 0.9% 100ML 0 ML IVPB ONE (19:01)
[2019-12-23] MEDS ORDERED: ONDANSETRON INJ 4 MG/2 ML VIAL IV PRN (21:27)
[2019-12-23] MEDS ORDERED: ACETAMINOPHEN 325 MG TAB PO PRN (21:27)
[2019-12-23] MEDS ORDERED: SODIUM CHLORIDE 0.9% (FLUSH) 10 ML SYG IV PRN (21:27)
[2019-12-23] MEDS ORDERED: ALUM & MAG HYDROX-SIMETHICONE 30 ML UD PO PRN (21:27)
[2019-12-23] MEDS ORDERED: MAGNESIUM HYDROXIDE 30 ML UD PO PRN (21:27)
[2019-12-23] MEDS ORDERED: IV SET AND CAP CHANGE INJ INJ SCH (21:30)
[2019-12-23] MEDS: DEX 5% W/NACL 0.45% 1000ML 1,000 ML IVS PRN (21:36)
[2019-12-23] MEDS ORDERED: FINASTERIDE 5 MG TAB ONE (21:38)
[2019-12-23] MEDS: FINASTERIDE 5 MG TAB PO SCH (21:39)
[2019-12-24] MEDS: DEX 5% W/NACL 0.45% 1000ML 1,000 ML IVS PRN ×3 (05:23→23:11)
[2019-12-24] MEDS: OMEPRAZOLE CAP 20 MG CAP PO SCH (06:38)
[2019-12-24] MEDS: AMIODARONE HCL 200 MG TAB PO SCH (08:34)
[2019-12-24] MEDS: ENOXAPARIN SODIUM 40 MG/0.4 ML SYG SUBCU SCH (08:34)
[2019-12-24] MEDS ORDERED: WARFARIN SODIUM 2 MG TAB PO SCH (12:00)
--- NOTE | 2019-12-24 17:30 | PN ---
SUPERVISING PHYSICIAN: Axel German MD DATE: SUBJECTIVE: The patient is sitting up in bed. He has no complaints of shortness of breath, nausea or vomiting. At this point, he said he would be open to home health but will need to talk to his . Reported by nursing that he has refused some of his meals but has eaten them after strong encouragement. OBJECTIVE: VITAL SIGNS: Temperature 98.9, heart rate 68, blood pressure 100/57, respiratory rate 18, oxygen saturation 99% on room air. RESPIRATORY: Diminished breath sounds throughout. HEART: Regular rate and rhythm. ABDOMEN: Soft, nondistended non-tender. Bowel sounds are positive. NEURO: He is awake and alert. LABORATORY: WBC has improved to 10,300 with hemoglobin 9.9 and hematocrit 28.5. He has a left shift on his differential. INR 1.69. Sodium 132, carbon dioxide 19, BUN 48, creatinine 1.28. Bilirubin 3.2. AST 56, creatinine kinase 206. His preliminary blood cultures show no growth after 24 hours. All other labs and films have been reviewed via the EMR. ASSESSMENT: 1. Questionable sepsis with lactic acidosis of 2.4 with metabolic acidosis. There are no obvious signs of an infectious process, but his WBCs were 12,700 with a temperature of 95.6 on admission. 2. Severe dehydration. 3. Severe nutritional deficit with an admitting BMI of 15.8. He has a weight loss of 20 to 25 pounds in the last several months. 4. Supratherapeutic INR on admission. Etiology most likely secondary to severe dehydration with no acute bleeds. He had an INR of greater than 10 on admission. It is now subtherapeutic, but less than 2, presently on Lovenox until his INR is therapeutic. 5. Moderate electrolyte imbalance with a hyperkalemia with elevated anion gap. 6. Hyperbilirubinemia with no significant history of hepatic abnormalities, again may be due to severe dehydration and poor nutrition. 7. Contusion to the right maxilla secondary to same level fall with no signs of bleeding and CT of the head without any acute findings. 8. Chronic compression fracture of L1. 9. Severe deconditioning. 10. Acute real insufficiency. His baseline creatinine is unknown. His admitting creatinine is 1.73. 11. High risk for COVID-19 due to his age, presentation and nutritional deficits. PLAN: We will continue present supportive care including his antibiotic therapy. We will await his cultures as well as his COVID-19 results. He is on Lovenox now and we will restart his routine Coumadin and check his PT/INR in the morning. An echocardiogram has been done and we will follow results tomorrow. I have also ordered a CTA of the chest. Lab and chest x-ray will be done tomorrow. I have not seen his , but we will need to speak to her tomorrow in regards to custodial placement or [facility] or at least home health. Otherwise, we will continue to monitor the patient closely and follow as needed. #[id number] JOHN
[2019-12-24] MEDS ORDERED: FINASTERIDE 5 MG TAB ONE (19:00)
--- NOTE | 2019-12-24 19:16 | CT ---
EXAM: Chest w/Contrast CLINICAL INDICATION: 74-year-old male with weight loss. COMPARISON: None. EXAMINATION: CT chest was performed following intravenous administration of contrast. This exam was performed according to our departmental dose optimization program which includes use of automated exposure control, adjustment of the mA and/or kV according to patient size and/or use of iterative reconstruction technique. FINDINGS: Chest: Evaluation through the lungs reveals no focal opacity, pleural effusion or pneumothorax. There is minimal dependent basilar atelectasis and scarring. The tracheobronchial airways are patent. No significant mediastinal or axillary lymphadenopathy by CT measurement criteria. Heart size within normal limits. No pericardial effusion. Mild ectasia of the ascending aorta measuring 4.2 cm. Limited evaluation of the upper abdomen shows no acute intra-abdominal abnormalities. Large volume of fecal content present throughout the large bowel raising the question of fecal stasis or constipation. Increased density within the gallbladder raising the possibility of sludge or gallstones. The osseous structures reveal degenerative change. Slight pectus excavatum deformity. Reidentification of compression fracture deformity of indeterminate age of the L1 vertebral level. There is vacuum disk phenomenon, cleft within the superior endplate with vacuum phenomenon and slight posterior retropulsion of the superior endplate into the central spinal canal by approximately 6 mm. IMPRESSION: 1. The lungs are clear without focal opacity, pleural effusion or pneumothorax. 2. No specific findings are noted to suggest etiology of the patient's chest pain and shortness of breath. 3. Large volume of fecal content present throughout the large bowel raising the question of fecal stasis or constipation. 4. Incompletely visualized gallbladder with increased density raising the possibility of sludge versus gallstones. 5. Reidentification of compression fracture deformity of indeterminate age of the L1 vertebral level. Further evaluation with MRI may be considered. Electronically signed by: Denita Parr MD 12/24/2019 7:15 PM CDT
[2019-12-24] MEDS: FINASTERIDE 5 MG TAB PO SCH (20:15)
[2019-12-25] MEDS: OMEPRAZOLE CAP 20 MG CAP PO SCH (05:52)
[2019-12-25] MEDS: DEX 5% W/NACL 0.45% 1000ML 1,000 ML IVS PRN ×2 (07:42→17:10)
[2019-12-25] MEDS: ENOXAPARIN SODIUM 40 MG/0.4 ML SYG SUBCU SCH (07:43)
[2019-12-25] MEDS: AMIODARONE HCL 200 MG TAB PO SCH (07:43)
[2019-12-25] MEDS: MAGNESIUM HYDROXIDE 30 ML UD PO SCH ×2 (11:40→12:30)
[2019-12-25] MEDS ORDERED: WARFARIN SODIUM 2 MG TAB PO SCH (12:00)
[2019-12-25 18:11] VITALS: O2SAT 98
[2019-12-25] MEDS: FINASTERIDE 5 MG TAB PO SCH (20:37)
[2019-12-25] MEDS ORDERED: SODIUM CHLORIDE 0.9% 500ML 500 ML IVS ONE (20:40)
[2019-12-26] MEDS: SODIUM CHLORIDE 0.9% (FLUSH) 10 ML SYG IV PRN (04:52)
[2019-12-26] MEDS: OMEPRAZOLE CAP 20 MG CAP PO SCH (06:07)
--- NOTE | 2019-12-26 08:13 | PN ---
SUPERVISING PHYSICIAN: Axel German MD DATE: 12/25/19 SUBJECTIVE: The patient is sitting up in bed. He has no complaints of shortness of breath, nausea or vomiting. He has agreed to go to a retirement no discharge. . OBJECTIVE: VITAL SIGNS: Temperature 97.8, heart rate 57, blood pressure 110/72, respiratory rate 16, oxygen saturation 96% on room air. RESPIRATORY: Somewhat diminished at the bases but otherwise clear to auscultation. HEART: Regular rate and rhythm. ABDOMEN: Soft, nondistended non-tender. He is very cachectic. LABORATORY: WBC 7.2 with hemoglobin 9.4 and hematocrit 27. He has a left shift on his differential. Sodium 127, BUN 44, creatinine 1.3, bilirubin 1.9. Magnesium 2. AST 52. Preliminary blood cultures show no growth after 48 hours. All other labs and films have been reviewed via the EMR. ASSESSMENT: 1. Questionable sepsis with lactic acidosis of 2.4 with metabolic acidosis. There are no obvious signs of an infectious process, but his WBCs were 12,700 with a temperature of 95.6 on admission. 2. Severe dehydration. 3. Severe nutritional deficit with an admitting BMI of 15.8. He has a weight loss of 20 to 25 pounds in the last several months. 4. Supratherapeutic INR on admission. Etiology most likely secondary to severe dehydration with no acute bleeds. He had an INR of greater than 10 on admission. It is now subtherapeutic, but less than 2, presently on Lovenox until his INR is therapeutic. 5. Moderate electrolyte imbalance with a hyperkalemia with elevated anion gap. 6. Hyperbilirubinemia with no significant history of hepatic abnormalities, again may be due to severe dehydration and poor nutrition. 7. Contusion to the right maxilla secondary to same level fall with no signs of bleeding and CT of the head without any acute findings. 8. Chronic compression fracture of L1. 9. Severe deconditioning. 10. Acute real insufficiency. His baseline creatinine is unknown. His admitting creatinine is 1.73. 11. High risk for COVID-19 due to his age, presentation and nutritional deficits. PLAN: We will continue present supportive care. I am awaiting COVID-19 results. [facility] has accepted patient at discharge once the COVID-19 results are back. I will give him a small bolus of fluids overnight due to his low sodium and repeat his labs in the morning. It may be necessary to have APS check on his [place] I do not believe that they have any family around and we will continue them closely and follow as needed. #[id number] ADDENDUM: [id number] Patient slid out of bed and there were no apparent injuries. He was assisted back to bed without problems. He was much more confused than normal but he denied and pain or shortness of breath. 500ml of normal saline was administered and labs were ordered for in the morning. Will continue to monitor him closely and follow as needed. JOHN
[2019-12-26] MEDS ORDERED: APIXABAN 5 MG TAB PO ONE (08:19)
[2019-12-26] MEDS: AMIODARONE HCL 200 MG TAB PO SCH (08:24)
[2019-12-26] MEDS ORDERED: APIXABAN 5 MG TAB PO SCH (09:00)
[2019-12-26 13:09] VITALS: BP 133/71; TEMP 98.7
--- NOTE | 2019-12-30 09:27 | DS ---
SUPERVISING PHYSICIAN: Axel German MD DISCHARGE DIAGNOSIS: 1. Questionable sepsis with lactic acidosis of 2.4 with metabolic acidosis. There were no obvious signs of an infectious process, but his WBCs were 12,700 with a temperature of 95.6 on admission. 2. Severe dehydration. 3. Severe nutritional deficit with an admitting BMI of 15.8. He has a weight loss of 20 to 25 pounds in the last several months. 4. Supratherapeutic INR on admission. He then became subtherapeutic after administration of vitamin K. He was placed on Lovenox and then transitioned to Eliquis. 5. Moderate electrolyte imbalance with a hyperkalemia with elevated anion gap. 6. Hyperbilirubinemia with no significant history of hepatic abnormalities, again may be due to severe dehydration and poor nutrition. 7. Contusion to the right maxilla secondary to same level fall with no signs of bleeding and CT of the head without any acute findings. 8. Chronic compression fracture of L1. 9. Severe deconditioning. 10. Acute real insufficiency. His baseline creatinine is unknown. His admitting creatinine was 1.73. 11. High risk for COVID-19 due to his age, presentation and nutritional deficits. HISTORY OF PRESENT ILLNESS: Mr. Stein is a 74-year-old male patient who has a history of mitral valve prolapse, hypertension, and chronic atrial fibrillation. Mr. Stein was brought to the Emergency Room via 911 with generalized weakness and malaise complaints. He was seen previously 3 days prior for some nausea, vomiting and generalized weakness. At that visit, it was noted his INR was elevated to greater than 10 and creatinine elevated at 1.6. He does endorse that he has stopped taking his warfarin despite the elevation. Looking at previous records, he was instructed to hold his Coumadin for 3 days and then return to the ER for further evaluation. He denied any headache, shortness of breath, chest pain, fever, diarrhea, no blood in the stool or urine. He has not traveled recently and has not had any ill contact exposure. Today, his laboratory studies showed a mild leukocytosis at 12,700 with a left shift, hemoglobin 11.8, hematocrit 35.4. Coagulation studies again showed an INR that was greater than 10 with PT 93.6, PT-T 63.5. Chemistries showed multiple electrolyte derangements with potassium 5.2, carbon dioxide 18, anion gap elevated at 20, BUN elevated at 58, creatinine 1.73 from 1.6 three days previously. Lactic acid was elevated at 2.4, total bilirubin 5.0, calcium 10.5, AST only slightly elevated at 60, ALT and alkaline phosphatase were normal. CK was elevated at 544. Troponin 0.02. BNP elevated at 518. TSH normal at 1.81. Urine in the ER showed 15 ketones, trace lysed blood, otherwise within normal limits. He had a chest x-ray that showed cardiomegaly, but stable. CT of the abdomen and pelvis without contrast per radiologic interpretation showed moderate fecal material in the colon suggesting constipation. No biliary duct dilation or hepatic abnormality was noted. There was question of sludge or stones in the gallbladder versus vicarious excretion of contrast. Compression fracture at L1 is noted which appears to be chronic with some retropulsion of fracture fragments resulting in some mild narrowing of the central canal. Vital signs initially on presentation showed he was mildly hypothermic with a temperature of 95.6, pulse 57, blood pressure 107/65, respiratory rate 18, saturations 100% on room air. On exam, the patient is severely dehydrated in appearance, also emaciated. The patient does endorse he has lost a large amount of weight. He is not sure of the actual amount, but it has been in a short period of time. He does live with is who has been attempting to take care of him, however, his weakness has gotten worse over the last 3 days where his is unable to help him off the floor after a fall or even to the restroom. He notes he has been drinking about a glass of water a day and only urinating about once a day. The patient is going to be admitted now for severe dehydration, severe malnutrition with metabolic acidosis with no clear etiology of any infectious source. He was admitted in stable condition. HOSPITAL COURSE: Mr. Stein was admitted for further treatment and evaluation. He was given fluid resuscitation in the Emergency Room and lactic acid repeated and was normal. His INR was greater than 10. He was given some vitamin K and then it was subtherapeutic at less than 2. He was placed on Lovenox and transitioned to Eliquis. He was treated in the ER with meropenem, but it was held due to no signs or symptoms of obvious infectious process. His laboratory stabilized. He was tested for COVID-19 due to his age and presentation. He agreed go to long-term care facility. [facility] has accepted him as a patient. His antibiotics were held due to no obvious signs of overt infection. He did have several incidences of mild confusion, but one incident where he was actually so confused that he slid out of the bed. He was unable to put any weight on his lower extremities. He was given judicious amount of fluid as his sodium level was down to 127. The patient was given laxatives and placed on MiraLAX. He had several large bowel movements. His COVID-19 results came back and was negative. He was encouraged to eat at each meal. Due to safety issues as well as nutritional issues, he will be discharged to long-term care facility. LABORATORY: His WBCs started at 12,700 and today are 6,500. Hemoglobin and hematocrit were 11.3 and 35.4. Today, are 9.3 and 26.6. He initially had a left shift on his differential and that has now normalized. INR was greater than 10 and is now 1.74. His Coumadin has been discontinued and he has been started on Eliquis. His sodium dropped as low as 127 and is now 129. Potassium 4.2. Creatinine improved to 1.26. Total bilirubin initially was 5 and is now 1.5. Lactic acid 1.9 and went up to 2.4 and is now 1.3. AST 60, TSH 1.81. Urinalysis unremarkable. Preliminary blood cultures showed no growth. RADIOLOGY: His initially was per the history of present illness. Chest CT showed 1) Lungs clear without focal opacities, pleural effusion or pneumothorax. 2) No specific findings are noted to suggest etiology of the patient's chest pain or shortness of breath. 3) Large volume of fecal content present throughout the large bowel raising question of fecal stasis. 4) Incompletely visualized gallbladder with increased density raising the possibility of sludge versus gallstones. 5) Re-identification of the compression fracture of indeterminate age of L1. DISCHARGE PLAN: The patient will be discharged to [facility] in stable condition. He is to have a regular diet and be encouraged to eat. He is to increase his activity as tolerated. It would be beneficial to have a patient consult. He is to followup with Dr. Saji Martínez, his primary care physician, or [facility] He is to resume his previous medications. He is to return to the hospital or followup with Dr. Vazquez or Dr. Martínez for any problems or complications. An APS referral was done by KATHERINE Laurent, due to the patient's poor nutritional status, poor living conditions as well as his 's poor nutritional status as well as poor living conditions. It was reported that the patient had no working refrigerator or working microwave and they were rationing their food at home due to no money and inability to get food. In addition to his home medications, he is to have Eliquis 5 mg b.i.d. DISCHARGE MEDICATIONS: 1. Lisinopril. 2. Finasteride. 3. Lipitor. 4. Amiodarone. 5. Aspirin. 6. Eliquis. #[id number] MTDD
== END 2019-12-26 16:30 | DRG 871 ==
LOC: ER 13:01 → OBSVTOIN 18:03 → MS 18:03
PROVIDERS: ADMIT Nurse Practitioner Family; ATTEND Nurse Practitioner Acute Care
PROC: BW211ZZ Computerized Tomography (CT Scan) of Abdomen and Pelvis using Low Osmolar Contrast (ICD-10-PCS; 2019-12-23)
PROC: BW241ZZ Computerized Tomography (CT Scan) of Chest and Abdomen using Low Osmolar Contrast (ICD-10-PCS; principal; 2019-12-24)
DX: A41.9 Sepsis, unspecified organism (principal); E43 Unspecified severe protein-calorie malnutrition; Z68.1 Body mass index [BMI] 19.9 or less, adult; I48.20 Chronic atrial fibrillation, unspecified; E86.0 Dehydration; R79.1 Abnormal coagulation profile; E87.5 Hyperkalemia; I10 Essential (primary) hypertension; Z79.01 Long term (current) use of anticoagulants; I34.1 Nonrheumatic mitral (valve) prolapse; Z79.82 Long term (current) use of aspirin; Z79.899 Other long term (current) drug therapy; S00.83XA Contusion of other part of head, initial encounter; W19.XXXA Unspecified fall, initial encounter; Y92.009 Unspecified place in unspecified non-institutional (private) residence as the place of occurrence of the external cause; K59.00 Constipation, unspecified; N28.9 Disorder of kidney and ureter, unspecified; E78.00 Pure hypercholesterolemia, unspecified

== ENCOUNTER → 2020-10-28 | Outpatient (CLI) | payer MEDICARE | LOC: GOCC 16:05 | PROVIDERS: ATTEND Internal Medicine | DX: N39.0 Urinary tract infection, site not specified (principal) ==